=== PATIENT | female | born 1970 | race Caucasian/White ===

== ENCOUNTER 2019-01-23 00:08 | Inpatient (IN) | payer SELFPAY ==
[~2019-01-23] VITALS: Ht 177.8 cm; Wt 118.7 kg
[2019-01-23] MEDS ORDERED: Budeprion Xl300 MG PO (00:23)
[2019-01-23] MEDS ORDERED: IBUP800 PO (00:26)
[2019-01-23] MEDS ORDERED: HCTZ/TRIAMTERENE PO (00:26)
[2019-01-23] MEDS ORDERED: Zocor20 MG PO (00:26)
[2019-01-23] MEDS ORDERED: SERT100 PO (00:26)
[2019-01-23 00:31] LABS: Hematocrit 36.8 % (33.0-51.0); Hemoglobin 12.2 g/dL (11.5-16.0); Mean Corpuscular HGB 30.4 pg (26.0-34.0); Mean Corpuscular HGB Conc 33.2 g/dL (31.5-36.5); Mean Corpuscular Volume 92 fL (80-100); Mean Platelet Volume 10.9 fL (9.1-12.4); Platelet Count 250 K/mm3 (150-400); RDW Coefficient Variation 14.3 % (11.7-14.2); RDW Standard Deviation 48.5 fL (35.1-46.3); Red Blood Cell Count 4.01 M/mm3 (3.80-5.20); White Blood Cell Count 21.82 K/mm3 (4.00-11.30)
[2019-01-23 00:47] LABS: BAND PERCENT MAN 12 % (0-8); BASOPHILS PERCENT MAN 0 % (0-2); EOSINOPHILS PERCENT MAN 0 % (0-6); LYMPHOCYTES ABSOLUTE MAN 0.43 K/mm3 (0.84-5.20); LYMPHOCYTES PERCENT MAN 2 % (21-46); MONOCYTES ABSOLUTE MAN 0.43 K/mm3 (0.16-1.47); MONOCYTES PERCENT MAN 2 % (4-13); NEUTROPHILS ABSOLUTE MAN 20.94 K/mm3 (1.96-9.15); SEG NEUTROPHILS PERCENT MAN 84 % (41-73); TOTAL CELLS COUNTED 100
[2019-01-23 00:49] LABS: Alanine Aminotransfer (ALT/SGP 39 U/L (12-78); Albumin, Blood 2.8 g/dL (3.4-5.0); Albumin/Globulin Ratio 0.7 (0.8-1.8); Alk Phos 104 U/L (50-136); Anion Gap 7 mmol/L (6-16); Aspartate Aminotrans (AST/SGOT 27 U/L (12-37); Bilirubin, Total 0.9 mg/dL (0.1-1.0); Blood Urea Nitrogen 9 mg/dL (8-24); Bun/Creatinine Ratio 10.8 (12.0-20.0); CO2, Blood 29 mmol/L (21-32); Chloride, Blood 99 mmol/L (98-108); Creatinine, Blood 0.83 mg/dL (0.40-1.00); Globulin, Blood 4.2 g/dL (2.2-4.0); Glomerular Filtration Rate >60 (60-); Glucose, Blood 155 mg/dL (70-99); Potassium, Blood 2.9 mmol/L (3.5-5.5); Sodium, Blood 135 mmol/L (136-145)
[2019-01-23 04:12] LABS: Adenovirus Not Detected (NOT DETECT); Bordetella pertussis Not Detected (NOT DETECT); Chlamydophila pneumoniae Not Detected (NOT DETECT); Coronavirus 229E Not Detected (NOT DETECT); Coronavirus HKU1 Not Detected (NOT DETECT); Coronavirus NL63 Not Detected (NOT DETECT); Coronavirus OC43 Not Detected (NOT DETECT); Human Metapneumovirus Detected (NOT DETECT); Human Rhinovirus/Enterovirus Not Detected (NOT DETECT); Influenza A Not Detected (NOT DETECT); Influenza A/2009-H1 Not Detected (NOT DETECT); Influenza A/H1 Not Detected (NOT DETECT); Influenza A/H3 Not Detected (NOT DETECT); Influenza B Not Detected (NOT DETECT); Mycoplasma pneumoniae Not Detected (NOT DETECT); Parainfluenza Virus 1 Not Detected (NOT DETECT); Parainfluenza Virus 2 Not Detected (NOT DETECT); Parainfluenza Virus 3 Not Detected (NOT DETECT); Parainfluenza Virus 4 Not Detected (NOT DETECT); Respiratory Syncytial Virus Not Detected (NOT DETECT)
--- NOTE | 2019-01-23 06:01 | NUR ---
END OF SHIFT SUMMARY ASSUMED CARE OF PT FROM ED. PT TO PCY FROM ED WITH DX SEVERE SEPSIS. HAS KCL 40MEQ/1000ML NS INF @250MLS/HR AND MG INF @ 25ML/HR. PT ALERT AND TALKING TO STAFF, IN ROOM. PT FEBRILR >101. MEDICATED WITH TYLENOL PER EMAR, FEVER HAS LESSENED. EXP WHEEZES NOTED T/O. PT ON 1L, WHEN FALLING ASLEEP, PT DESATS TO <90%. PT INCREASED TO 2L. HX JOSE, PT DOES NOT REGULARLY USES CPAP. PT EDUCATED ON MOATTER. PT IN NSR. PT DENIES NAUSEA/VOMITING AT THIS TIME POS ZOFRAN IN ED. PT'S BACK OF THROAT NOED TO BE RED. PAINFUL FOR PATIENT. DR MORRIS BELIEVES IT TO BE STREP, WAITING FOR STREP CULTURE TO BE COMPLETED. PT STARTED ON ORAL ABX. HURRICAINE THROAT NUMBING SPRAY X1 DOSE AND LOZENGES ORDERED FOR PT. LACTIC HAS DECREASED FROM 2.4 TO 1.9. PT HAS APPEARWED TO BE RESTING SINCE HURRICAINE SPRAY ADMINISTERED. Will continue to monitor pt until shift change.
--- NOTE | 2019-01-23 07:20 | NUR ---
ASSUMED CARE: RECEIVED REPORT FROM NOC RN. PT APPEARS TO BE SLEEPING UPON ENTERING ROOM. NO ACUTE SIGNS OF DISTRESS. PT NOTED TO BE ON O2 WITH SATS >92%. WILL ASSESS FURTHER AND MONITOR
[2019-01-23 08:50] LABS: BASOPHILS ABSOLUTE AUTO 0.03 K/mm3 (0.00-0.23); BASOPHILS PERCENT AUTO 0 % (0-2); EOSINOPHILS ABSOLUTE AUTO 0.15 K/mm3 (0.00-0.68); EOSINOPHILS PERCENT AUTO 1 % (0-6); Hematocrit 34.2 % (33.0-51.0); Hemoglobin 11.3 g/dL (11.5-16.0); IMMATURE GRAN ABSOLUTE AUTO 0.17 K/mm3 (0.00-0.10); IMMATURE GRAN PERCENT AUTO 1 % (0-1); LYMPHOCYTES ABSOLUTE AUTO 0.32 K/mm3 (0.84-5.20); LYMPHOCYTES PERCENT AUTO 2 % (21-46); MONOCYTES ABSOLUTE AUTO 0.72 K/mm3 (0.16-1.47); MONOCYTES PERCENT AUTO 3 % (4-13); Mean Corpuscular HGB 29.9 pg (26.0-34.0); Mean Corpuscular Volume 91 fL (80-100); Mean Platelet Volume 11.3 fL (9.1-12.4); NEUTROPHILS ABSOLUTE AUTO 20.06 K/mm3 (1.96-9.15); NEUTROPHILS PERCENT AUTO 94 % (41-73); Platelet Count 240 K/mm3 (150-400); RDW Coefficient Variation 14.4 % (11.7-14.2); RDW Standard Deviation 47.8 fL (35.1-46.3); Red Blood Cell Count 3.78 M/mm3 (3.80-5.20); White Blood Cell Count 21.45 K/mm3 (4.00-11.30)
[2019-01-23 09:07] LABS: Anion Gap 6 mmol/L (6-16); Blood Urea Nitrogen 7 mg/dL (8-24); Bun/Creatinine Ratio 9.4 (12.0-20.0); CO2, Blood 26 mmol/L (21-32); Calcium, Blood 7.5 mg/dL (8.5-10.1); Chloride, Blood 106 mmol/L (98-108); Creatinine, Blood 0.75 mg/dL (0.40-1.00); Glomerular Filtration Rate >60 (60-); Glucose, Blood 131 mg/dL (70-99); Potassium, Blood 3.2 mmol/L (3.5-5.5); Sodium, Blood 138 mmol/L (136-145)
[2019-01-23 15:48] LABS: Source, Urine Clean Catch
--- NOTE | 2019-01-23 15:48 | NUR ---
SHIFT SUMMARY: NO ACUTE CHANGES NOTED. PT STATES NO CHANGE IN FEELING. TEMP HAS REDUCED T/O THE DAY. VSS T/O THE DAY. UA SENT OFF THIS EVENING. MINIMAL OUTPUT NOTED. WILL CONTINUE TO MONITOR AND RERPORT TO KEITH RN.
[2019-01-23 16:30] LABS: Bilirubin, Urine Neg (Neg); Blood, Urine 5+ (Neg); Glucose Qualitative, Urine Neg (Neg); Ketones, Urine Neg (Neg); Leukocyte Esterase, Urine Neg (Neg); Nitrite, Urine Neg (Neg); Protein, Urine 2+ (Neg); Urobilinogen, Urine 2+ (Normal)
[2019-01-23 16:35] LABS: Appearance, Urine Clear (Clear); Color, Urine Yellow (P-Yellow)
[2019-01-23 16:37] LABS: Bacteria Not Seen /hpf; Squamous Epithelial Cells Mod /hpf (Few); White Blood Cells, Urine 0-2 /hpf (0-5)
--- NOTE | 2019-01-23 16:58 | NUR ---
TRANSFER TO 331: REPORT GIVEN TO RN FOR 331. PT LEAVING THE UNIT AT THIS TIME.
--- NOTE | 2019-01-23 19:03 | NUR ---
pt arrived to room 258 from [facility]. settled in to bed. at bedside. pt reported a very bad headache that tylenol hasn't helped. offered diet pepsi which is caffinated drink of choice. became nauseated and vomitted. spoke with md about continued nausea with anything in her stomach. phenergan ordered and given. pt now sleeping. report given to oncoming shift.
--- NOTE | 2019-01-23 20:15 | NUR ---
PATIENT STATING 84% ON ROOM AIR FOR VITALS. SLEEPING BUT AROUSABLE. AWAKE FOR VITALS. PUT ON 2L O2 NC STATING 93%. WILL CONTINUE TO MONITOR.
--- NOTE | 2019-01-24 03:26 | NUR ---
SHIFT SUMMARY PATIENT HAD NO ACUTE CHANGES OBSERVED THIS SHIFT. AXO X3 AND INDEPENDENT IN THE ROOM. VSS/AFEBRILE. PATIENT PUT ON 2L O2 NC AFTER STATING 84% ON FIRST SET OF VITALS. STATING 93% NOW ON 2L. TAKES MEDICATION WHOLE WITH WATER. PATIENT REPORTED HEADACHE X ONE AND RECEIVED TYLENOL PER EMAR. DENIES SOB AND N/V. PIV REMAINS INTACT. PATIENT REPORTED SHE WANTED TO GET TO SLEEP EARLY IN THE SHIFT. CALL LIGHT IN REACH. BED IN LOWEST POSITION. WILL CONTINUE TO MONITOR UNTIL DAY SHIFT NURSE ASSUMES CARE.
[2019-01-24 05:09] LABS: BASOPHILS ABSOLUTE AUTO 0.02 K/mm3 (0.00-0.23); BASOPHILS PERCENT AUTO 0 % (0-2); EOSINOPHILS ABSOLUTE AUTO 0.46 K/mm3 (0.00-0.68); EOSINOPHILS PERCENT AUTO 3 % (0-6); Hematocrit 31.5 % (33.0-51.0); Hemoglobin 10.2 g/dL (11.5-16.0); IMMATURE GRAN ABSOLUTE AUTO 0.06 K/mm3 (0.00-0.10); IMMATURE GRAN PERCENT AUTO 0 % (0-1); LYMPHOCYTES PERCENT AUTO 6 % (21-46); MONOCYTES ABSOLUTE AUTO 0.56 K/mm3 (0.16-1.47); MONOCYTES PERCENT AUTO 4 % (4-13); Mean Corpuscular HGB 29.9 pg (26.0-34.0); Mean Corpuscular HGB Conc 32.4 g/dL (31.5-36.5); Mean Corpuscular Volume 92 fL (80-100); Mean Platelet Volume 11.3 fL (9.1-12.4); NEUTROPHILS ABSOLUTE AUTO 11.66 K/mm3 (1.96-9.15); NEUTROPHILS PERCENT AUTO 86 % (41-73); Platelet Count 222 K/mm3 (150-400); RDW Coefficient Variation 14.6 % (11.7-14.2); RDW Standard Deviation 49.5 fL (35.1-46.3); Red Blood Cell Count 3.41 M/mm3 (3.80-5.20); White Blood Cell Count 13.56 K/mm3 (4.00-11.30)
[2019-01-24 05:45] LABS: Anion Gap 5 mmol/L (6-16); Blood Urea Nitrogen 9 mg/dL (8-24); Bun/Creatinine Ratio 11.2 (12.0-20.0); CO2, Blood 28 mmol/L (21-32); Calcium, Blood 7.9 mg/dL (8.5-10.1); Chloride, Blood 106 mmol/L (98-108); Glomerular Filtration Rate >60 (60-); Glucose, Blood 101 mg/dL (70-99); Potassium, Blood 3.1 mmol/L (3.5-5.5); Sodium, Blood 139 mmol/L (136-145)
--- NOTE | 2019-01-24 18:04 | NUR ---
SUMMARY PT SITTING UP IN BED EATING HER DINNER, SOME FAMILY HAS BEEN IN TO VISIT, PT HAS BEEN INDEPENDENT IN THE ROOM, PLEASANT AND COOPERATIVE WITH CARE, VSS, NO ACUTE CHANGES, WILL CONT TO MONITOR
[2019-01-25 04:30] LABS: BASOPHILS ABSOLUTE AUTO 0.03 K/mm3 (0.00-0.23); BASOPHILS PERCENT AUTO 0 % (0-2); EOSINOPHILS ABSOLUTE AUTO 0.59 K/mm3 (0.00-0.68); EOSINOPHILS PERCENT AUTO 5 % (0-6); Hematocrit 31.9 % (33.0-51.0); Hemoglobin 10.2 g/dL (11.5-16.0); IMMATURE GRAN ABSOLUTE AUTO 0.06 K/mm3 (0.00-0.10); IMMATURE GRAN PERCENT AUTO 1 % (0-1); LYMPHOCYTES ABSOLUTE AUTO 1.13 K/mm3 (0.84-5.20); LYMPHOCYTES PERCENT AUTO 10 % (21-46); MONOCYTES ABSOLUTE AUTO 0.51 K/mm3 (0.16-1.47); MONOCYTES PERCENT AUTO 4 % (4-13); Mean Corpuscular HGB 29.7 pg (26.0-34.0); Mean Corpuscular Volume 93 fL (80-100); NEUTROPHILS ABSOLUTE AUTO 9.21 K/mm3 (1.96-9.15); NEUTROPHILS PERCENT AUTO 80 % (41-73); Platelet Count 250 K/mm3 (150-400); RDW Coefficient Variation 14.5 % (11.7-14.2); RDW Standard Deviation 49.3 fL (35.1-46.3); Red Blood Cell Count 3.44 M/mm3 (3.80-5.20); White Blood Cell Count 11.53 K/mm3 (4.00-11.30)
[2019-01-25 04:47] LABS: Anion Gap 8 mmol/L (6-16); Blood Urea Nitrogen 8 mg/dL (8-24); Bun/Creatinine Ratio 10.8 (12.0-20.0); CO2, Blood 28 mmol/L (21-32); Calcium, Blood 7.8 mg/dL (8.5-10.1); Chloride, Blood 106 mmol/L (98-108); Creatinine, Blood 0.74 mg/dL (0.40-1.00); Glomerular Filtration Rate >60 (60-); Glucose, Blood 106 mg/dL (70-99); Potassium, Blood 3.3 mmol/L (3.5-5.5); Sodium, Blood 142 mmol/L (136-145)
--- NOTE | 2019-01-25 05:49 | NUR ---
SHIFT SUMMARY NO ACUTE CHANGES THIS EVENING. PT HOPING TO DISCHARGE AND RETURN HOME TODAY. PT PLEASANT AND COOPERATIVE. NO SOB NOTED. LUNG SOUNDS CLEAR WITH VERY MINIMAL COARSE SOUNDS IN MATEO. PT ON RA THROUGHOUT THE NIGHT. O2 SATS LOW 90'S WHILE SLEEPING. NO COMPLAINTS OF PAIN OR DISCOMFORT. AMBULATED INDEPENDENTLY IN THE ROOM. VSS.
[2019-01-25] MEDS ORDERED: AZIT250 PO (13:16)
--- NOTE | 2019-01-25 14:37 | NUR ---
DISCHARGE DISCHARGE MEDICATIONS AND INSTRUCTIONS EXPLAINED TO PATIENT. SHE STATED UNDERSTANDING. IV REMOVED WITHOUT DIFFICULTY. BELONGINGS WITH PATIENT. PATIENT TRANSFERED TO PRIVATE VEHICLE VIA WHEELCHAIR.
== END 2019-01-25 14:15 | disposition home or self-care (01) | DRG 871 ==
LOC: ER 00:08 → ICUW 01:38 → MEDS 02:45 → ICUW 02:50 → MEDS 17:15
PROVIDERS: Emergency Medicine; Hospitalist; ADMIT Hospitalist
DX: A41.9 Sepsis, unspecified organism (principal); J12.3 Human metapneumovirus pneumonia; J44.0 Chronic obstructive pulmonary disease with (acute) lower respiratory infection; R65.20 Severe sepsis without septic shock; I10 Essential (primary) hypertension; F32.9 Major depressive disorder, single episode, unspecified; E78.5 Hyperlipidemia, unspecified; F41.9 Anxiety disorder, unspecified; J02.0 Streptococcal pharyngitis; E66.01 Morbid (severe) obesity due to excess calories; G47.33 Obstructive sleep apnea (adult) (pediatric); E87.6 Hypokalemia; Z68.37 Body mass index [BMI] 37.0-37.9, adult
CPT/HCPCS: 36415; 71045; 74176; 80048; 80053; 81001; 83605; 83690; 83735; 84145; 85025; 86308; 87081; 87147; 87430; 87486; 87581; 87633; 87798; 96361; 96365; 96368; 96375; 99285-25; J0456; J0696; J1650; J2405; J2550; J3475; J3480; J7030; J7050